=== PATIENT | male | born 1960 | race African-American/Black ===

== ENCOUNTER 2021-02-24 05:28 | Inpatient (IN) | payer MEDICAID, OTHER ==
[~2021-02-24] VITALS: Ht 157.5 cm; Wt 76.9 kg
[2021-02-24 06:13] LABS: Basophils # (auto) 0 10 ^3/uL (0-0.2); Basophils % (auto) 0.6 % (0.0-2.0); Eosinophils # (auto) 0 10 ^3/uL (0-0.8); Eosinophils % (auto) 1.2 % (0.0-7.0); Hematocrit 42.1 % (41.0-53.0); Hemoglobin 13.8 g/dL (13.5-17.5); Lymphocytes # (auto) 1.4 10 ^3/uL (0.4-5.4); Lymphocytes % (auto) 39.4 % (10.0-50.0); Mean Corpuscular Hgb Conc. 32.8 g/dL (32.0-36.0); Mean Corpuscular Volume 97.6 fL (80.0-100.0); Monocytes # (auto) 0.5 10 ^3/uL (0-1.3); Monocytes % (auto) 14.6 % (0.0-12.0); Neutrophils # (auto) 1.5 10 ^3/uL (1.6-8.6); Neutrophils % (auto) 44.2 % (37.0-80.0); Nucleated Red Blood Cells % 1.1 %; Platelet Count (auto) 131 10^3/uL (140-450); Red Blood Cells 4.32 10^6/uL (4.5-5.90); Red Cell Distribution Width 18.9 % (11.8-14.3); White Blood Cell 3.5 10^3/uL (4.4-10.8)
[2021-02-24 06:29] LABS: INR 1.25 (0.9-1.15); Partial Thromboplastin Time 28.3 sec (23.0-31.2)
[2021-02-24 06:35] LABS: Albumin 3.7 g/dL (3.4-5.0); Calcium 8.6 mg/dL (8.5-10.1); Magnesium 1.6 mg/dL (1.6-2.6); Potassium 3.4 mmol/L (3.5-5.1)
[2021-02-24 06:37] LABS: BUN/Creatinine Ratio 14.8
[2021-02-24 06:42] LABS: Bilirubin, Total 4.5 mg/dL (0.2-1.0); Total Protein 7.1 g/dL (6.4-8.2)
[2021-02-24] MEDS ORDERED: SODIUM CHLORIDE 0.9% 1,000 ML IV ONE (08:15)
[2021-02-24] MEDS ORDERED: HYDROmorphone HCL 2 MG/ML VL IV ONE ×2 (08:15→12:15)
[2021-02-24] MEDS ORDERED: IOHEXOL 350 MG/ML 100ML IJ ONE (08:30)
[2021-02-24] MEDS: PROMETHAZINE HCL 25 MG/ML 1ML IV PRN ×2 (08:38→12:14)
[2021-02-24] MEDS ORDERED: SPIRONOLACTONE 25 MG TAB PO ONE (12:00)
[2021-02-24] MEDS ORDERED: FUROSEMIDE 40 MG/4 ML VIAL IV ONE (12:00)
[2021-02-24 12:05] LABS: Urine Amorphous Crystal FEW /hpf (None Seen); Urine Bacteria NONE SEEN /hpf (None Seen); Urine Blood Negative /uL (Negative); Urine Hyaline Cast FEW /lpf (0 - 2); Urine Mucus FEW (None Seen); Urine WBC 1 /hpf (0 - 3)
[2021-02-24 12:10] LABS: Urine Specific Gravity > 1.050 (1.001-1.035)
[2021-02-24] MEDS ORDERED: NITROGLYCERIN 0.4 MG SL TAB SL PRN (13:15)
[2021-02-24] MEDS ORDERED: MORPHINE SULF INJ 2 MG/ML SYRINGE 1ML IV PRN (13:15)
[2021-02-24 13:24] VITALS: BP 126/101
[2021-02-24] MEDS ORDERED: DEXTROSE (50%) 50ML SYRG IV PRN (13:30)
[2021-02-24] MEDS: methylPREDNISolone SOD SUCC 40 MG/ML VL IV SCH (14:01)
[2021-02-24] MEDS: ALBUTEROL SULF 2.5 MG/0.5ML(0.5%) NEB SOLN NEB SCH ×3 (14:10→22:38)
[2021-02-24] MEDS: IPRATROPIUM BROM 0.5 MG/2.5ML INH SOL NEB SCH ×3 (14:15→22:38)
[2021-02-24 16:56] VITALS: BP 124/97
[2021-02-24] MEDS: ACCU-CHEK COMFORT CURVE STRIP VI SCH (17:00)
[2021-02-24] MEDS: InsuLIN REG 1unit/0.01ml Soln (100units/ml) SC SCH (17:00)
[2021-02-24] MEDS: FUROSEMIDE 40 MG/4 ML VIAL IV SCH (18:00)
[2021-02-24 22:00] VITALS: BP 106/85
[2021-02-24 23:55] LABS: Hematocrit 43.6 % (41.0-53.0); Hemoglobin 14.2 g/dL (13.5-17.5)
[2021-02-25] MEDS: METOPROLOL TARTRATE 25 MG TAB PO SCH ×3 (00:22→22:00)
[2021-02-25] MEDS: InsuLIN REG 1unit/0.01ml Soln (100units/ml) SC SCH ×5 (00:23→22:00)
[2021-02-25] MEDS ORDERED: LIDOCAINE HCL 2% TOP JELLY 5ML TOP ONE (01:30)
[2021-02-25] MEDS ORDERED: LIDOCAINE 2% JELLY 11ml (GLYDO) ONE (01:42)
[2021-02-25] MEDS: MORPHINE SULF INJ 2 MG/ML SYRINGE 1ML IV PRN ×2 (01:59→09:02)
[2021-02-25] MEDS ORDERED: LIDOCAINE 2% JELLY 11ml (GLYDO) UR ONE ×2 (02:15→08:45)
[2021-02-25 05:00] VITALS: BP 101/84
[2021-02-25] MEDS: FUROSEMIDE 40 MG/4 ML VIAL IV SCH ×2 (05:59→17:58)
[2021-02-25] MEDS: methylPREDNISolone SOD SUCC 40 MG/ML VL IV SCH ×4 (05:59→22:15)
[2021-02-25 06:10] LABS: Basophils # (auto) 0 10 ^3/uL (0-0.2); Basophils % (auto) 0.5 % (0.0-2.0); Eosinophils # (auto) 0 10 ^3/uL (0-0.8); Hematocrit 43.3 % (41.0-53.0); Hemoglobin 14.8 g/dL (13.5-17.5); Lymphocytes # (auto) 0.7 10 ^3/uL (0.4-5.4); Lymphocytes % (auto) 13.7 % (10.0-50.0); Mean Corpuscular Hemoglobin 34.3 pg (28.0-32.0); Mean Corpuscular Hgb Conc. 34.3 g/dL (32.0-36.0); Monocytes # (auto) 0.4 10 ^3/uL (0-1.3); Monocytes % (auto) 8.4 % (0.0-12.0); Neutrophils # (auto) 3.7 10 ^3/uL (1.6-8.6); Neutrophils % (auto) 77.4 % (37.0-80.0); Nucleated Red Blood Cells % 2.4 %; Platelet Count (auto) 133 10^3/uL (140-450); Red Blood Cells 4.33 10^6/uL (4.5-5.90); Red Cell Distribution Width 19.6 % (11.8-14.3); White Blood Cell 4.8 10^3/uL (4.4-10.8)
[2021-02-25] MEDS: ACCU-CHEK COMFORT CURVE STRIP VI SCH ×5 (06:11→22:15)
[2021-02-25 06:28] LABS: Potassium 4.5 mmol/L (3.5-5.1)
[2021-02-25 06:47] LABS: BUN/Creatinine Ratio 10.2; Calcium 9.2 mg/dL (8.5-10.1)
[2021-02-25] MEDS: IPRATROPIUM BROM 0.5 MG/2.5ML INH SOL NEB SCH ×5 (08:05→22:08)
[2021-02-25] MEDS: ALBUTEROL SULF 2.5 MG/0.5ML(0.5%) NEB SOLN NEB SCH ×5 (08:05→22:08)
[2021-02-25 08:14] LABS: Amphetamine Screen, Urine NEGATIVE (NEGATIVE); Barbiturate Scree,Urine NEGATIVE (NEGATIVE); Benzodiazephine Screen, Urine NEGATIVE (NEGATIVE); Cannabinoid Screen, Urine NEGATIVE (NEGATIVE); Cocaine Screen, Urine NEGATIVE (NEGATIVE); Opiate Scree,Urine NEGATIVE (NEGATIVE); Phencyclidine Screen, Urine NEGATIVE (NEGATIVE)
[2021-02-25 09:00] VITALS: BP 104/45
[2021-02-25] MEDS ORDERED: HYDROmorphone HCL 2 MG/ML VL IV ONE (10:00)
[2021-02-25] MEDS ORDERED: ENOXAPARIN SOD 40 MG/0.4 ML SYRINGE SC SCH (10:00)
[2021-02-25] MEDS: PANTOPRAZOLE 40 MG TAB PO SCH (10:41)
[2021-02-25 13:00] VITALS: BP 114/88
[2021-02-25 16:53] VITALS: BP 110/80
[2021-02-25 21:23] VITALS: BP 100/76
[2021-02-25] MEDS: DOBUTamine 1000MCG/ML 250 ML IV SCH (23:31)
[2021-02-26] VITALS (12 sets, daily range): BP systolic 90–115; BP diastolic 60–84
[2021-02-26] MEDS: MORPHINE SULF INJ 2 MG/ML SYRINGE 1ML IV PRN (01:58)
[2021-02-26 05:25] LABS: Basophils # (auto) 0 10 ^3/uL (0-0.2); Eosinophils # (auto) 0 10 ^3/uL (0-0.8); Hemoglobin 13.1 g/dL (13.5-17.5); Monocytes # (auto) 0.9 10 ^3/uL (0-1.3); White Blood Cell 9.1 10^3/uL (4.4-10.8)
[2021-02-26 05:29] LABS: Basophils % (auto) 0.2 % (0.0-2.0); Hematocrit 39.6 % (41.0-53.0); Lymphocytes # (auto) 0.7 10 ^3/uL (0.4-5.4); Lymphocytes % (auto) 7.2 % (10.0-50.0); Mean Corpuscular Hemoglobin 33.6 pg (28.0-32.0); Mean Corpuscular Hgb Conc. 33.1 g/dL (32.0-36.0); Mean Corpuscular Volume 101.7 fL (80.0-100.0); Monocytes % (auto) 9.7 % (0.0-12.0); Neutrophils # (auto) 7.5 10 ^3/uL (1.6-8.6); Neutrophils % (auto) 82.9 % (37.0-80.0); Nucleated Red Blood Cells % 1.1 %; Platelet Count (auto) 107 10^3/uL (140-450); Red Blood Cells 3.89 10^6/uL (4.5-5.90); Red Cell Distribution Width 20.3 % (11.8-14.3)
[2021-02-26] MEDS: FUROSEMIDE 40 MG/4 ML VIAL IV SCH (05:56)
[2021-02-26] MEDS: methylPREDNISolone SOD SUCC 40 MG/ML VL IV SCH (06:24)
[2021-02-26] MEDS: InsuLIN REG 1unit/0.01ml Soln (100units/ml) SC SCH ×4 (06:27→22:00)
[2021-02-26] MEDS: ACCU-CHEK COMFORT CURVE STRIP VI SCH ×4 (06:27→22:00)
[2021-02-26 06:36] LABS: BUN/Creatinine Ratio 10.8; Calcium 8.4 mg/dL (8.5-10.1); Potassium 4.8 mmol/L (3.5-5.1)
[2021-02-26] MEDS: IPRATROPIUM BROM 0.5 MG/2.5ML INH SOL NEB SCH ×5 (07:06→22:20)
[2021-02-26] MEDS: ALBUTEROL SULF 2.5 MG/0.5ML(0.5%) NEB SOLN NEB SCH ×5 (07:06→22:20)
[2021-02-26] MEDS: METOPROLOL TARTRATE 25 MG TAB PO SCH ×2 (10:11→22:00)
[2021-02-26] MEDS: PANTOPRAZOLE 40 MG TAB PO SCH (10:11)
[2021-02-26] MEDS: DOBUTamine 1000MCG/ML 250 ML IV SCH ×2 (10:12→22:40)
[2021-02-26] MEDS ORDERED: SODIUM BICARBONATE 50ML VIAL 100 ML in D5W 5% 1,000 ML IV SCH (10:15)
[2021-02-26] MEDS: SODIUM BICARBONATE 50ML VIAL 50 ML in SOD CHL 0.45% 1,000 ML IV SCH ×2 (10:45→13:22)
[2021-02-26] MEDS: BUMETANIDE INJECTION 12.5 MG in GIVE UN-DILUTED 0 ML IV SCH (13:23)
[2021-02-26] MEDS ORDERED: SODIUM BICARBONATE 650 MG TAB PO SCH (14:00)
[2021-02-26 14:05] LABS: Creatinine, Urine 148 mg/dL (30.0-125.0); Sodium Urine 34 mmol/L (40-220)
[2021-02-26 14:14] LABS: Protein, Urine 158.8 mg/dL (0.0-11.9)
[2021-02-26] MEDS: HYDROcodone-ACET 10/325MG TAB PO PRN (23:52)
[2021-02-27] VITALS (9 sets, daily range): BP systolic 91–157; BP diastolic 66–79
[2021-02-27] MEDS: SODIUM BICARBONATE 50ML VIAL 50 ML in SOD CHL 0.45% 1,000 ML IV SCH (00:09)
[2021-02-27] MEDS: InsuLIN REG 1unit/0.01ml Soln (100units/ml) SC SCH ×4 (06:34→22:00)
[2021-02-27] MEDS: ACCU-CHEK COMFORT CURVE STRIP VI SCH ×4 (06:34→22:22)
[2021-02-27 06:43] LABS: Basophils # (auto) 0 10 ^3/uL (0-0.2); Basophils % (auto) 0.1 % (0.0-2.0); Eosinophils # (auto) 0 10 ^3/uL (0-0.8); Hematocrit 37.2 % (41.0-53.0); Hemoglobin 12.8 g/dL (13.5-17.5); Lymphocytes # (auto) 0.4 10 ^3/uL (0.4-5.4); Lymphocytes % (auto) 4.1 % (10.0-50.0); Mean Corpuscular Hemoglobin 33.5 pg (28.0-32.0); Mean Corpuscular Hgb Conc. 34.3 g/dL (32.0-36.0); Mean Corpuscular Volume 97.8 fL (80.0-100.0); Monocytes # (auto) 0.6 10 ^3/uL (0-1.3); Monocytes % (auto) 6.7 % (0.0-12.0); Neutrophils # (auto) 8.3 10 ^3/uL (1.6-8.6); Neutrophils % (auto) 89.1 % (37.0-80.0); Nucleated Red Blood Cells % 0.7 %; Platelet Count (auto) 99 10^3/uL (140-450); Red Blood Cells 3.81 10^6/uL (4.5-5.90); Red Cell Distribution Width 19.2 % (11.8-14.3); White Blood Cell 9.3 10^3/uL (4.4-10.8)
[2021-02-27 06:54] LABS: INR 2.21 (0.9-1.15); Partial Thromboplastin Time 34.1 sec (23.0-31.2)
[2021-02-27 06:59] LABS: Potassium 4.3 mmol/L (3.5-5.1)
[2021-02-27 07:04] LABS: BUN/Creatinine Ratio 15.8; Calcium 7.7 mg/dL (8.5-10.1); Magnesium 1.9 mg/dL (1.6-2.6)
[2021-02-27] MEDS: IPRATROPIUM BROM 0.5 MG/2.5ML INH SOL NEB SCH ×5 (07:46→22:02)
[2021-02-27] MEDS: ALBUTEROL SULF 2.5 MG/0.5ML(0.5%) NEB SOLN NEB SCH ×5 (07:46→22:02)
[2021-02-27] MEDS: DOBUTamine 1000MCG/ML 250 ML IV SCH ×2 (09:30→23:21)
[2021-02-27] MEDS: METOPROLOL TARTRATE 25 MG TAB PO SCH ×2 (11:13→22:22)
[2021-02-27] MEDS: PANTOPRAZOLE 40 MG TAB PO SCH (11:13)
[2021-02-27] MEDS: HYDROcodone-ACET 10/325MG TAB PO PRN ×2 (11:15→19:03)
[2021-02-27] MEDS: ALPRAZolam 0.5 MG TAB PO SCH ×3 (11:59→22:21)
[2021-02-27] MEDS ORDERED: ALPRAZolam 0.5 MG TAB PO ONE (12:00)
[2021-02-27] MEDS: BUMETANIDE INJECTION 12.5 MG in GIVE UN-DILUTED 0 ML IV SCH (13:00)
[2021-02-27] MEDS: DOPamine 1600MCG/ML D5W 250 ML IV SCH (15:00)
[2021-02-28] MEDS: SODIUM BICARBONATE 50ML VIAL 50 ML in SOD CHL 0.45% 1,000 ML IV SCH ×2 (00:24→05:45)
[2021-02-28 04:00] VITALS: BP 106/69
[2021-02-28] MEDS: ALPRAZolam 0.5 MG TAB PO SCH (06:33)
[2021-02-28] MEDS: InsuLIN REG 1unit/0.01ml Soln (100units/ml) SC SCH ×3 (06:43→17:00)
[2021-02-28] MEDS: ALBUTEROL SULF 2.5 MG/0.5ML(0.5%) NEB SOLN NEB SCH ×3 (07:01→14:07)
[2021-02-28] MEDS: IPRATROPIUM BROM 0.5 MG/2.5ML INH SOL NEB SCH ×3 (07:01→14:07)
[2021-02-28] MEDS: ACCU-CHEK COMFORT CURVE STRIP VI SCH ×3 (07:01→17:00)
[2021-02-28] MEDS: BUMETANIDE INJECTION 12.5 MG in GIVE UN-DILUTED 0 ML IV SCH (07:08)
[2021-02-28 08:00] VITALS: BP 102/75
[2021-02-28 08:52] VITALS: BP 142/67
[2021-02-28] MEDS: PANTOPRAZOLE 40 MG TAB PO SCH (08:57)
[2021-02-28] MEDS: DOBUTamine 1000MCG/ML 250 ML IV SCH (08:58)
[2021-02-28] MEDS: METOPROLOL TARTRATE 25 MG TAB PO SCH (08:58)
[2021-02-28] MEDS ORDERED: PHYTONADIONE(VitK) ORAL Susp 10mg/10ml(1mg/ml) PO SCH (10:00)
[2021-02-28 10:34] VITALS: BP 102/75
[2021-02-28 13:30] VITALS: BP 90/67
[2021-02-28] MEDS: DOPamine 1600MCG/ML D5W 250 ML IV SCH (13:52)
[2021-02-28 14:10] LABS: Basophils # (auto) 0 10 ^3/uL (0-0.2); Basophils % (auto) 0.2 % (0.0-2.0); Eosinophils # (auto) 0 10 ^3/uL (0-0.8); Eosinophils % (auto) 0.1 % (0.0-7.0); Hematocrit 43.3 % (41.0-53.0); Hemoglobin 14.7 g/dL (13.5-17.5); Lymphocytes # (auto) 0.6 10 ^3/uL (0.4-5.4); Lymphocytes % (auto) 8.8 % (10.0-50.0); Mean Corpuscular Hemoglobin 33.2 pg (28.0-32.0); Mean Corpuscular Volume 97.7 fL (80.0-100.0); Monocytes # (auto) 0.5 10 ^3/uL (0-1.3); Monocytes % (auto) 7.5 % (0.0-12.0); Neutrophils % (auto) 83.4 % (37.0-80.0); Nucleated Red Blood Cells % 0.4 %; Platelet Count (auto) 101 10^3/uL (140-450); Red Blood Cells 4.43 10^6/uL (4.5-5.90); Red Cell Distribution Width 19.6 % (11.8-14.3); White Blood Cell 7.2 10^3/uL (4.4-10.8)
[2021-02-28 14:23] LABS: INR 1.8 (0.9-1.15)
[2021-02-28 14:34] LABS: Potassium 3.8 mmol/L (3.5-5.1)
[2021-02-28 14:38] LABS: BUN/Creatinine Ratio 21.2; Total Protein 7.3 g/dL (6.4-8.2)
[2021-02-28 17:34] VITALS: BP 122/95
[2021-02-28] MEDS ORDERED: MIDODRINE HCL 10 MG TAB PO SCH (18:00)
[2021-02-28] MEDS ORDERED: ALPRAZolam 0.5 MG TAB PO SCH (22:00)
== END 2021-02-28 18:00 | disposition left against medical advice (07) | DRG 194 ==
LOC: ER 05:28 → TELE 13:18 → TELE-WESTW 15:06 → TELE-CENTR 02-25 22:40 → DOU IN ICU 02-26 01:00 → TELE-EAST 02-26 22:48
PROVIDERS: ADMIT Internal Medicine; ATTEND Internal Medicine
DX: I13.0 Hypertensive heart and chronic kidney disease with heart failure and stage 1 through stage 4 chronic kidney disease, or unspecified chronic kidney disease (principal); J96.21 Acute and chronic respiratory failure with hypoxia; N17.0 Acute kidney failure with tubular necrosis; E87.1 Hypo-osmolality and hyponatremia; K80.21 Calculus of gallbladder without cholecystitis with obstruction; E11.22 Type 2 diabetes mellitus with diabetic chronic kidney disease; E87.2 Acidosis; I50.23 Acute on chronic systolic (congestive) heart failure; J43.9 Emphysema, unspecified; K70.31 Alcoholic cirrhosis of liver with ascites; I42.0 Dilated cardiomyopathy; E66.9 Obesity, unspecified; Z20.822 Contact with and (suspected) exposure to COVID-19; Z53.29 Procedure and treatment not carried out because of patient's decision for other reasons; K80.20 Calculus of gallbladder without cholecystitis without obstruction; Z68.30 Body mass index [BMI] 30.0-30.9, adult; N18.9 Chronic kidney disease, unspecified
CPT/HCPCS: 36415; 36600; 71045; 71260; 74177; 76775; 76856; 80048; 80053; 80307; 81001; 82570; 82805; 82962; 83735; 83880; 84156; 84300; 84484; 85014; 85018; 85025; 85379; 85610; 85730; 87081; 87426; 93005; 93306; 94640; 96361; 96374; 96375; 96376; G0378; J1815